=== PATIENT | male | born 1970 | race Caucasian/White ===

== ENCOUNTER → 2018-10-21 | Outpatient (CLI) | payer BC ==
[2018-10-21 20:04] LABS: BASO # 0.1 10^3/uL (0.0-0.2); BASO % 0.5 % (0.0-1.0); EOS # 0.2 10^3/uL (0.0-0.50); EOS % 1.9 % (0.0-3.0); HEMATOCRIT 48.1 % (42.0-52.0); HEMOGLOBIN 16.1 g/dl (13.5-17.5); IMMATURE GRANULOCYTE % 0.3 % (0-3.0); LYMPH # 2.6 10^3/uL (1.5-4.5); LYMPH % 25.7 % (24.0-44.0); MEAN CORPUSCULAR HEMOGLOBIN 32.7 pg (27.0-33.0); MEAN CORPUSCULAR HGB CONC 33.5 g/dl (32.0-36.5); MEAN CORPUSCULAR VOLUME 97.6 fl (80.0-96.0); MONO # 0.9 10^3/uL (0.0-0.8); MONO % 8.8 % (0.0-5.0); NEUTROPHILS # 6.2 10^3/uL (1.8-7.7); NEUTROPHILS % 62.8 % (36.0-66.0); PLATELET COUNT, AUTOMATED 330 10^3/uL (150-450); RED BLOOD COUNT 4.93 10^6/uL (4.30-6.10); RED CELL DISTRIBUTION WIDTH 11.7 % (11.5-14.5); WHITE BLOOD COUNT 9.9 10^3/uL (4.0-10.0)
[2018-10-21 20:09] LABS: ALBUMIN 4.4 GM/DL (3.2-5.2); ALBUMIN/GLOBULIN RATIO 1.38 (1.00-1.93); ALKALINE PHOSPHATASE 80 U/L (45-117); ALT/SGPT 37 U/L (12-78); AMYLASE 98 U/L (25-115); ANION GAP 5 MEQ/L (8-16); AST/SGOT 23 U/L (7-37); BILIRUBIN,TOTAL 0.4 MG/DL (0.2-1.0); BLOOD UREA NITROGEN 17 MG/DL (7-18); CALCIUM LEVEL 9.5 MG/DL (8.5-10.1); CARBON DIOXIDE LEVEL 31 MEQ/L (21-32); CHLORIDE LEVEL 104 MEQ/L (98-107); CREATININE FOR GFR 1.04 MG/DL (0.70-1.30); GLOMERULAR FILTRATION RATE > 60.0 (>60); GLUCOSE, FASTING 81 MG/DL (70-100); LIPASE 135 U/L (73-393); POTASSIUM SERUM 4.6 MEQ/L (3.5-5.1); SODIUM LEVEL 140 MEQ/L (136-145); TOTAL PROTEIN 7.6 GM/DL (6.4-8.2)
[2018-10-21 20:12] LABS: CONTROL LINE HPYORI INT CTR LINE PRESENT; H PYLORI QUALITATIVE IgG NEGATIVE (NEGATIVE)
[2018-10-24 00:07] LABS: H PYLORI SERUM QUANT IGM <9.0 units (0.0-8.9)
== END ==
LOC: M WUC 15:30
DX: R10.10 Upper abdominal pain, unspecified (principal)
CPT/HCPCS: 82150

== ENCOUNTER → 2019-06-05 | Outpatient (CLI) | payer BC ==
[2019-06-05 20:45] LABS: BASO # 0.1 10^3/uL (0.0-0.2); BASO % 0.7 % (0.0-1.0); EOS # 0.1 10^3/uL (0.0-0.50); EOS % 1.3 % (0.0-3.0); HEMATOCRIT 44.5 % (42.0-52.0); HEMOGLOBIN 14.9 g/dl (13.5-17.5); LYMPH # 2.3 10^3/uL (1.5-4.5); LYMPH % 33.7 % (24.0-44.0); MEAN CORPUSCULAR HEMOGLOBIN 32.2 pg (27.0-33.0); MEAN CORPUSCULAR HGB CONC 33.5 g/dl (32.0-36.5); MEAN CORPUSCULAR VOLUME 96.1 fl (80.0-96.0); MONO # 0.8 10^3/uL (0.0-0.8); MONO % 12.1 % (0.0-5.0); NEUTROPHILS # 3.5 10^3/uL (1.8-7.7); NEUTROPHILS % 51.9 % (36.0-66.0); PLATELET COUNT, AUTOMATED 326 10^3/uL (150-450); RED BLOOD COUNT 4.63 10^6/uL (4.30-6.10); WHITE BLOOD COUNT 6.7 10^3/uL (4.0-10.0)
[2019-06-05 21:01] LABS: ALT/SGPT 28 U/L (12-78); BLOOD UREA NITROGEN 15 MG/DL (7-18); CALCIUM LEVEL 9.3 MG/DL (8.5-10.1); CARBON DIOXIDE LEVEL 28 MEQ/L (21-32); CHLORIDE LEVEL 107 MEQ/L (98-107); GLOMERULAR FILTRATION RATE > 60.0 (>60); GLUCOSE, FASTING 72 MG/DL (70-100); POTASSIUM SERUM 3.8 MEQ/L (3.5-5.1); SODIUM LEVEL 142 MEQ/L (136-145)
[2019-06-05 21:02] LABS: BILIRUBIN,TOTAL 0.3 MG/DL (0.2-1.0); THYROID STIMULATING HORMONE 0.647 uIU/ML (0.358-3.740); TOTAL PROTEIN 7.1 GM/DL (6.4-8.2)
== END ==
LOC: M WUC 16:20
PROVIDERS: ATTEND Physician Assistant
DX: R42 Dizziness and giddiness (principal); R19.7 Diarrhea, unspecified

== ENCOUNTER 2021-04-02 23:42 | Emergency (ER) | payer BC ==
[2021-04-03] MEDS ORDERED: levETIRAcetam INJection 1,000 MG in D5W 100 ML IV ONE (00:10)
[2021-04-03 00:12] LABS: HEMATOCRIT 44.3 % (42.0-52.0); HEMOGLOBIN 14.8 g/dl (13.5-17.5); MEAN CORPUSCULAR HGB CONC 33.4 g/dl (32.0-36.5); MEAN CORPUSCULAR VOLUME 95.7 fl (80.0-96.0); PLATELET COUNT, AUTOMATED 333 10^3/uL (150-450); RED BLOOD COUNT 4.63 10^6/uL (4.30-6.10); WHITE BLOOD COUNT 11.6 10^3/uL (4.0-10.0)
[2021-04-03] MEDS ORDERED: THIAMINE 200MG/2ML VIAL (J3411 PER 100MG) IV ONE (00:25)
--- NOTE | 2021-04-03 00:32 | REPVR ---
PROCEDURE INFORMATION: Exam: CT Head Without Contrast Exam date and time: 04/03/2021 12:17 AM Age: 50 years old Clinical indication: Condition or disease; Convulsions or seizures; Unspecified; Additional info: Status epilepticus TECHNIQUE: Imaging protocol: Computed tomography of the head without contrast. Radiation optimization: All CT scans at this facility use at least one of these dose optimization techniques: automated exposure control; mA and/or kV adjustment per patient size (includes targeted exams where dose is matched to clinical indication); or iterative reconstruction. COMPARISON: No relevant prior studies available. FINDINGS: Images through the base of the brain and posterior fossa, including the brainstem are slightly degraded by beam hardening artifacts from the adjacent calvarium. There is no evidence of acute intracranial hemorrhage, extra axial fluid collection or hematoma. There is no midline shift or herniation. The ventricles are not dilated. No evidence of pneumocephalus. No CT findings are seen at the current time to suggest changes of acute territorial vascular infarction. Note is made however, that CT changes, may lag clinical findings in acute CVA. If clinically indicated, consideration could be given to MRI with diffusion weighted imaging, due to its greater sensitivity, for early detection of acute ischemic change. No evidence of regional or global edema. Incidental intracranial calcifications are noted. No pericranial scalp hematoma is seen. No acute cranial vault fracture is seen. No fluid is seen within the visualized paranasal sinuses or mastoid air cells. The visualized middle ear cavities are not opacified. IMPRESSION: No evidence of an acute intracranial abnormality. No evidence of acute territorial major vessel infarct, mass effect, or hemorrhage. Given the patient's history of seizure, further evaluation by pre and post contrast MRI could be of additional diagnostic benefit. Electronically signed by: Renaldo Dunlap On 04/03/2021 00:31:59 AM
[2021-04-03 00:41] LABS: BASO # 0.1 10^3/uL (0.0-0.2); BASO % 0.6 % (0.0-1.0); EOS # 0.4 10^3/uL (0.0-0.5); EOS % 3.4 % (0.0-3.0); LYMPH % 34.2 % (24.0-44.0); MONO # 0.8 10^3/uL (0.0-0.8); MONO % 6.8 % (2.0-8.0); NEUTROPHILS # 6.3 10^3/uL (1.5-8.5); NEUTROPHILS % 54.5 % (36.0-66.0)
[2021-04-03 00:42] LABS: ACETAMINOPHEN LEVEL < 2.0 UG/ML (10.0-30.0); ALBUMIN 4.5 GM/DL (3.2-5.2); ALT/SGPT 42 U/L (12-78); BILIRUBIN,DIRECT 0.1 MG/DL (0.0-0.2); BILIRUBIN,TOTAL 0.2 MG/DL (0.2-1.0); BLOOD UREA NITROGEN 17 MG/DL (7-18); CALCIUM LEVEL 8.9 MG/DL (8.5-10.1); CARBON DIOXIDE LEVEL 21 MEQ/L (21-32); CHLORIDE LEVEL 114 MEQ/L (98-107); CREATININE FOR GFR 0.99 MG/DL (0.70-1.30); GLOMERULAR FILTRATION RATE > 60.0 (>60); GLUCOSE, FASTING 102 MG/DL (70-100); MAGNESIUM LEVEL 2.3 MG/DL (1.8-2.4); PHOSPHORUS LEVEL 2.4 MG/DL (2.5-4.9); SALICYLATE LEVEL 2.6 MG/DL (5.0-30.0); SODIUM LEVEL 146 MEQ/L (136-145); THYROID STIMULATING HORMONE 0.873 uIU/ML (0.358-3.740); TOTAL PROTEIN 7.5 GM/DL (6.4-8.2)
[2021-04-03 00:48] LABS: AMPHETAMINES LEVEL URINE NEGATIVE (NEGATIVE); BARBITURATES URINE NEGATIVE (NEGATIVE); BENZODIAZEPINES URINE NEGATIVE (NEGATIVE); CANNABINOIDS URINE NEGATIVE (NEGATIVE); COCAINE METABOLITE URINE NEGATIVE (NEGATIVE); METHADONE URINE NEGATIVE (NEGATIVE); OPIATES URINE NEGATIVE (NEGATIVE); PHENCYCLIDINE URINE NEGATIVE (NEGATIVE)
[2021-04-03] MEDS ORDERED: NS 1,000 ML IV ONE ×2 (00:50)
--- NOTE | 2021-04-03 00:53 | REPVR ---
PROCEDURE INFORMATION: Exam: XR Chest Exam date and time: 04/03/2021 12:29 AM Age: 50 years old Clinical indication: Other: Status epilepticus TECHNIQUE: Imaging protocol: XR of the chest. Views: 1 view. COMPARISON: CR CHEST 2 VIEW 10/21/2018 3:39 PM FINDINGS: LUNGS and PLEURAL SPACE: The lungs are symmetrically expanded. Lung volumes are within normal limits. No evidence of peribronchial thickening. There is no consolidation, pneumothorax, or pleural effusion. No evidence of pulmonary vascular redistribution or overt edema. MEDIASTINUM: There is no mediastinal shift or widening. CARDIAC SILHOUETTE: Cardiothoracic ratio is within normal limits. BONY THORAX: No acute findings are seen. OTHER: Gas is seen within the visualized left upper abdomen, possibly within the stomach and adjacent colon. This could be correlated clinically for any significance. IMPRESSION: No radiographic evidence for acute disease in the chest. Other findings discussed above. Electronically signed by: Renaldo Dunlap On 04/03/2021 00:53:19 AM
[2021-04-03 02:46] LABS: PLATELET ESTIMATE NORMAL (NORMAL)
[2021-04-03 05:00] VITALS: BP 109/55
[2021-04-03] MEDS ORDERED: LEVE500T5 PO (05:15)
--- NOTE | 2021-04-03 07:58 | ECGEPIP ---
[facility] - ED Test Date: 2021-04-02 Pat Name: CORA LYNNE Department: Room: - Gender: Male [employer]: HC : 1970 Requested By: DORYS JOHNSON Order Number: [id number] Reading MD: Pati Linda Measurements Intervals Lolo Rate: 105 P: 38 TN: 126 QRS: 9 QRSD: 80 T: 29 QT: 350 QTc: 462 Interpretive Statements Sinus tachycardia No prior Electronically Signed on 04-03-2021 7:58:20 EDT by Pati Linda
== END 2021-04-03 05:23 | disposition home or self-care (01) ==
LOC: M ED 23:42
DX: R56.9 Unspecified convulsions (principal); R00.0 Tachycardia, unspecified; E78.5 Hyperlipidemia, unspecified; Z91.018 Allergy to other foods; J30.81 Allergic rhinitis due to animal (cat) (dog) hair and dander
CPT/HCPCS: 70450; 71045; 80048; 80076; 80143; 80307; 82077; 82330; 83605; 83735; 84100; 84443; 85027; 93005; 96361; 96365; 96366; 96375; 99285; J1953; J3411